=== PATIENT | female | born 1965 | race Caucasian/White ===

== ENCOUNTER 2018-01-07 09:24 | Emergency (ER) | payer MEDICAID, MEDICARE ==
[~2018-01-07] VITALS: Ht 162.6 cm; Wt 61.4 kg
[~2018-01-07 09:24] MED LIST: CITA40TA14 PO; QUET300T2 PO
[2018-01-07] MEDS ORDERED: GABA-531 PO (09:38)
[2018-01-07 12:19] VITALS: BP 141/78
== END 2018-01-07 13:13 | disposition home or self-care (01) ==
LOC: EMS 09:26
DX: F31.9 Bipolar disorder, unspecified (principal); F41.9 Anxiety disorder, unspecified; F17.210 Nicotine dependence, cigarettes, uncomplicated; F15.90 Other stimulant use, unspecified, uncomplicated; Z76.0 Encounter for issue of repeat prescription; Z88.6 Allergy status to analgesic agent; Z88.5 Allergy status to narcotic agent; Z88.8 Allergy status to other drugs, medicaments and biological substances
CPT/HCPCS: 99284; 99406

== ENCOUNTER 2018-02-22 11:41 | Inpatient (IN) | payer MEDICARE, MEDICAID ==
[~2018-02-22] VITALS: Ht 162.6 cm; Wt 68.7 kg
[~2018-02-22 11:41] MED LIST changes: -CITA40TA14 PO; +FERR-89 PO; +GABA-531 PO; +LAMO100 PO; +PANT40TA25 PO; +QUET200T PO; -QUET300T2 PO; +SIMV-259 PO; +VILA10TA PO
[2018-02-22] MEDS ORDERED: ZOLPIDEM TARTRATE 10 MG TABLET PO PRN (12:00)
[2018-02-22 12:09] VITALS: BP 135/92
[2018-02-22] MEDS: IBUPROFEN 600 MG TABLET PO SCH ×2 (14:24→16:34)
[2018-02-22] MEDS: LORazepam 1 MG TABLET PO PRN (14:24)
[2018-02-22] MEDS: QUEtiapine FUMARATE 25 MG TABLET PO SCH ×2 (14:24→16:34)
[2018-02-22 16:08] VITALS: BP 138/75
[2018-02-22] MEDS: QUEtiapine FUMARATE 200 MG TABLET PO SCH (20:41)
[2018-02-22] MEDS: SIMVASTATIN 10 MG TABLET PO SCH (20:41)
[2018-02-23] MEDS: LORazepam 1 MG TABLET PO PRN ×3 (00:11→12:47)
[2018-02-23 01:17] VITALS: BP 126/82
[2018-02-23 06:05] VITALS: BP 124/77
[2018-02-23] MEDS ORDERED: DOCUSATE SODIUM 100 MG CAPSULE PO PRN (07:00)
[2018-02-23] MEDS ORDERED: ONDANSETRON HCL 4 MG TABLET PO PRN (07:00)
[2018-02-23] MEDS ORDERED: MAG HYDROX/AL HYDROX/SIMETH ES 30 ML SUSPENSION UDCUP PO PRN (07:00)
[2018-02-23] MEDS ORDERED: IBUPROFEN 400 MG TABLET PO PRN (07:00)
[2018-02-23] MEDS ORDERED: LOPERAMIDE HCL 2 MG CAPSULE PO PRN (07:00)
[2018-02-23] MEDS ORDERED: ALBUTEROL SULFATE HFA 90 MCG/PUFF 8 GM INHALER IH PRN (07:00)
[2018-02-23] MEDS ORDERED: MAGNESIUM HYDROXIDE SUSPENSION 30 ML UDCUP PO PRN (07:00)
[2018-02-23] MEDS ORDERED: NICOTINE 14 MG/24 HOUR PATCH TD PRN (07:00)
[2018-02-23] MEDS ORDERED: CloNIDine HCL 0.1 MG TABLET PO PRN (07:00)
[2018-02-23] MEDS ORDERED: PETROLATUM,WHITE 71 GM JELLY TP PRN (07:00)
[2018-02-23] MEDS ORDERED: GuaiFENesin/D-METHORPHAN [SUGAR-FREE] 200-20MG/10 ML SYRUP UDCUP PO PRN (07:00)
[2018-02-23 08:27] VITALS: BP 115/76
[2018-02-23 08:52] LABS: BASOPHILS % (AUTO) 0.7 % (0.0-2.0); EOSINOPHILS % (AUTO) 4.3 % (1.0-6.0); HEMATOCRIT 36.7 % (36-46); HEMOGLOBIN 12.5 g/dL (12.0-16.0); LYMPHOCYTES # (AUTO) 2.3 K/uL (1.0-4.8); LYMPHOCYTES % (AUTO) 42.2 % (22.0-44.0); MEAN CORPUSCULAR VOLUME 91 fL (80-100); MONOCYTES # (AUTO) 0.4 K/uL (0.1-1.0); MONOCYTES % (AUTO) 7.7 % (2.0-9.0); NEUTROPHILS # (AUTO) 2.5 K/uL (1.8-7.7); NEUTROPHILS % (AUTO) 45.1 % (40.0-70.0); PLATELET COUNT (AUTO) 217 K/uL (150-450); RED BLOOD CELL COUNT(AUTO) 4.03 MIL/uL (4.00-5.20); RED CELL DISTRIBUTION WIDTH 13.1 % (11.5-14.5)
[2018-02-23] MEDS: IBUPROFEN 600 MG TABLET PO SCH ×3 (09:12→16:33)
[2018-02-23] MEDS: QUEtiapine FUMARATE 25 MG TABLET PO SCH ×3 (09:13→16:33)
[2018-02-23] MEDS: LORATADINE 10 MG TABLET PO SCH (09:13)
[2018-02-23] MEDS: LamoTRIgine 100 MG TABLET PO SCH (09:13)
[2018-02-23] MEDS: FENOFIBRATE 48 MG TABLET PO SCH (09:13)
[2018-02-23] MEDS: PANTOPRAZOLE SODIUM 40 MG DR TABLET PO SCH (09:13)
[2018-02-23 09:27] LABS: AMPHET/METH SCREEN,URINE NEGATIVE (NEGATIVE); BARBITURATE SCREEN, URINE NEGATIVE (NEGATIVE); BENZODIAZEPINES SCREEN,URINE NEGATIVE (NEGATIVE); CANNABINOID SCREEN,URINE NEGATIVE (NEGATIVE); COCAINE SCREEN,URINE NEGATIVE (NEGATIVE); METHADONE SCREEN, URINE NEGATIVE (NEGATIVE); OPIATE SCREEN,URINE NEGATIVE (NEGATIVE)
[2018-02-23 09:31] LABS: PHENCYCLIDINE SCREEN,URINE NEGATIVE (NEGATIVE)
[2018-02-23 09:33] LABS: ALANINE AMINOTRANSFERASE 24 U/L (12-78); ALBUMIN 3.6 g/dL (3.4-5.0); ALKALINE PHOSPHATASE 66 U/L (46-116); ANION GAP 7 mmol/L (8-16); ASPARTATE AMINOTRANSFERASE 18 U/L (15-37); BILIRUBIN,TOTAL 0.3 mg/dL (0.1-1.0); CALCIUM, TOTAL 9.1 mg/dL (8.8-10.5); CARBON DIOXIDE 28 mmol/L (22-29); CHLORIDE 108 mmol/L (98-107); CHOL/HDL RATIO 4.3 (3.9-5.7); CHOLESTEROL 172 mg/dL (131-200); CREATININE 0.88 mg/dL (0.60-1.30); GLOMERULAR FILTR. RATE CALC > 60 mL/min (>60); GLUCOSE,RANDOM 91 mg/dL (70-110); HCG,QUANTITATIVE 1 mIU/mL (0-6); HDL CHOLESTEROL 40 mg/dL (40-60); LDL CHOL (CALC.) 102 mg/dL (0-130); POTASSIUM 4.2 mmol/L (3.5-5.1); SODIUM SERUM 143 mmol/L (136-145); TOTAL PROTEIN, SERUM 6.5 g/dL (6.4-8.2); TRIGLYCERIDES 152 mg/dL (15-150); UREA NITROGEN, BLOOD 22 mg/dL (7-18)
[2018-02-23 10:05] LABS: APPEARANCE,URINE CLEAR (CLEAR); BILIRUBIN,URINE NEGATIVE (NEGATIVE); GLUCOSE, URINE (UA) NEGATIVE (NEGATIVE); KETONES,URINE NEGATIVE (NEGATIVE); LEUKOCYTE ESTERASE ,URINE NEGATIVE (NEGATIVE); NITRATE,URINE NEGATIVE (NEGATIVE); OCCULT BLOOD,URINE NEGATIVE (NEGATIVE); PROTEIN,URINE NEGATIVE (NEGATIVE); UROBILINOGEN,URINE 0.2 mg/dL (<=1.0)
[2018-02-23] MEDS: BuPROPion HCL XL 150 MG ER TABLET PO SCH (12:52)
[2018-02-23 16:21] VITALS: BP 110/76
[2018-02-23] MEDS: SIMVASTATIN 10 MG TABLET PO SCH (20:38)
[2018-02-23] MEDS: QUEtiapine FUMARATE 200 MG TABLET PO SCH (20:38)
[2018-02-24 02:35] VITALS: BP 111/65
[2018-02-24] MEDS: LORazepam 1 MG TABLET PO PRN ×3 (02:37→15:51)
[2018-02-24 07:48] LABS: BASOPHILS % (AUTO) 1.1 % (0.0-2.0); HEMATOCRIT 33.6 % (36-46); HEMOGLOBIN 11.7 g/dL (12.0-16.0); LYMPHOCYTES # (AUTO) 2.4 K/uL (1.0-4.8); LYMPHOCYTES % (AUTO) 47.5 % (22.0-44.0); MEAN CORPUSCULAR HEMOGLOBIN 31.5 pg (26.0-34.0); MEAN CORPUSCULAR HGB CONC 34.9 G/dL (31.0-37.0); MEAN CORPUSCULAR VOLUME 90 fL (80-100); MONOCYTES # (AUTO) 0.4 K/uL (0.1-1.0); MONOCYTES % (AUTO) 8.1 % (2.0-9.0); NEUTROPHILS # (AUTO) 1.9 K/uL (1.8-7.7); NEUTROPHILS % (AUTO) 38.3 % (40.0-70.0); PLATELET COUNT (AUTO) 183 K/uL (150-450); RED BLOOD CELL COUNT(AUTO) 3.72 MIL/uL (4.00-5.20); RED CELL DISTRIBUTION WIDTH 12.9 % (11.5-14.5)
[2018-02-24 08:14] LABS: HEMOGLOBIN A1C 5.3 % (4.5-6.2)
[2018-02-24 08:27] VITALS: BP 115/69
[2018-02-24] MEDS: LamoTRIgine 100 MG TABLET PO SCH (08:44)
[2018-02-24] MEDS: LORATADINE 10 MG TABLET PO SCH (08:44)
[2018-02-24] MEDS: OMEGA-3/DHA/EPA/FISH OIL 1,000 MG CAPSULE PO SCH (08:44)
[2018-02-24] MEDS: MULTIVITAMINS WITH MINERALS, THERAPEUTIC TABLET PO SCH (08:44)
[2018-02-24] MEDS: QUEtiapine FUMARATE 25 MG TABLET PO SCH ×3 (08:44→16:57)
[2018-02-24] MEDS: PANTOPRAZOLE SODIUM 40 MG DR TABLET PO SCH (08:45)
[2018-02-24] MEDS: FENOFIBRATE 48 MG TABLET PO SCH (08:45)
[2018-02-24] MEDS: BuPROPion HCL XL 150 MG ER TABLET PO SCH (08:45)
[2018-02-24] MEDS: IBUPROFEN 600 MG TABLET PO SCH ×3 (08:45→16:57)
[2018-02-24 08:49] LABS: ALANINE AMINOTRANSFERASE 17 U/L (12-78); ALBUMIN 3.3 g/dL (3.4-5.0); ALKALINE PHOSPHATASE 57 U/L (46-116); ANION GAP 7 mmol/L (8-16); ASPARTATE AMINOTRANSFERASE 12 U/L (15-37); BILIRUBIN,TOTAL 0.4 mg/dL (0.1-1.0); CALCIUM, TOTAL 8.9 mg/dL (8.8-10.5); CARBON DIOXIDE 25 mmol/L (22-29); CHLORIDE 108 mmol/L (98-107); CHOL/HDL RATIO 4.1 (3.9-5.7); CHOLESTEROL 147 mg/dL (131-200); CREATININE 0.78 mg/dL (0.60-1.30); GLOMERULAR FILTR. RATE CALC > 60 mL/min (>60); GLUCOSE,RANDOM 82 mg/dL (70-110); HDL CHOLESTEROL 36 mg/dL (40-60); LDL CHOL (CALC.) 86 mg/dL (0-130); POTASSIUM 4.5 mmol/L (3.5-5.1); SODIUM SERUM 140 mmol/L (136-145); THYROID STIMULATING HORMONE 0.76 uIU/mL (0.36-3.74); TOTAL PROTEIN, SERUM 6.1 g/dL (6.4-8.2); TRIGLYCERIDES 127 mg/dL (15-150); UREA NITROGEN, BLOOD 20 mg/dL (7-18)
[2018-02-24 16:08] VITALS: BP 110/65
[2018-02-24] MEDS: QUEtiapine FUMARATE 200 MG TABLET PO SCH (20:09)
[2018-02-24] MEDS: SIMVASTATIN 10 MG TABLET PO SCH (20:09)
[2018-02-25 04:04] VITALS: BP 112/77
[2018-02-25] MEDS: LORazepam 1 MG TABLET PO PRN (04:13)
[2018-02-25 08:26] VITALS: BP 109/68
[2018-02-25] MEDS: OMEGA-3/DHA/EPA/FISH OIL 1,000 MG CAPSULE PO SCH (08:28)
[2018-02-25] MEDS: PANTOPRAZOLE SODIUM 40 MG DR TABLET PO SCH (08:28)
[2018-02-25] MEDS: LamoTRIgine 100 MG TABLET PO SCH (08:28)
[2018-02-25] MEDS: BuPROPion HCL XL 150 MG ER TABLET PO SCH (08:28)
[2018-02-25] MEDS: MULTIVITAMINS WITH MINERALS, THERAPEUTIC TABLET PO SCH (08:28)
[2018-02-25] MEDS: FENOFIBRATE 48 MG TABLET PO SCH (08:29)
[2018-02-25] MEDS: IBUPROFEN 600 MG TABLET PO SCH ×2 (08:29→12:47)
[2018-02-25] MEDS: QUEtiapine FUMARATE 25 MG TABLET PO SCH ×2 (08:30→12:47)
[2018-02-25] MEDS: LORATADINE 10 MG TABLET PO SCH (08:30)
[2018-02-25] MEDS ORDERED: OMEG-135 PO (12:36)
[2018-02-25] MEDS ORDERED: BUPR-93 PO (12:36)
[2018-02-25] MEDS ORDERED: IBUP-2070 PO (12:36)
[2018-02-25] MEDS ORDERED: QUET200T PO (12:36)
[2018-02-25] MEDS ORDERED: FENO48TA15 PO (12:36)
[2018-02-25] MEDS ORDERED: QUET25TA PO (12:36)
[2018-02-25] MEDS ORDERED: LORA10TA7 PO (12:36)
[2018-02-25] MEDS ORDERED: LAMO100 PO (12:36)
== END 2018-02-25 13:30 | disposition home or self-care (01) | DRG 885 ==
LOC: B2X 12:14
PROVIDERS: ADMIT Psychiatry & Neurology Psychiatry; ATTEND Psychiatry & Neurology Psychiatry
DX: F31.5 Bipolar disorder, current episode depressed, severe, with psychotic features (principal); R45.851 Suicidal ideations; F15.20 Other stimulant dependence, uncomplicated; D64.9 Anemia, unspecified; F17.200 Nicotine dependence, unspecified, uncomplicated; E78.5 Hyperlipidemia, unspecified; K59.00 Constipation, unspecified; K21.9 Gastro-esophageal reflux disease without esophagitis; F12.20 Cannabis dependence, uncomplicated; F41.9 Anxiety disorder, unspecified; Z90.89 Acquired absence of other organs; Z71.6 Tobacco abuse counseling; Z91.19 Patient's noncompliance with other medical treatment and regimen; Z79.899 Other long term (current) drug therapy; Z88.8 Allergy status to other drugs, medicaments and biological substances; Z56.0 Unemployment, unspecified; Z91.048 Other nonmedicinal substance allergy status
CPT/HCPCS: 80307; 83036; 84443

== ENCOUNTER → 2018-05-30 | Outpatient (CLI) | payer MEDICARE, MEDICAID ==
[~2018-05-30] MED LIST changes: +BUPR-93 PO; +CEPH500 PO; +FENO145T PO; +FENO48TA15 PO; -FERR-89 PO; -GABA-531 PO; +IBUP-2070 PO; +LITH600C PO; +LORA10TA7 PO; +OMEG-135 PO; +QUET25TA PO; -VILA10TA PO
== END | disposition home or self-care (01) ==
LOC: LABMN 11:30
PROVIDERS: ATTEND Psychiatry & Neurology Psychiatry
DX: F25.0 Schizoaffective disorder, bipolar type (principal); I10 Essential (primary) hypertension
CPT/HCPCS: 80074; 86706; 86708

== ENCOUNTER → 2018-06-22 | Outpatient (CLI) | payer MEDICARE, MEDICAID ==
[~2018-06-22] MED LIST changes: -FENO48TA15 PO; -IBUP-2070 PO; -LAMO100 PO; -LORA10TA7 PO; -QUET25TA PO
== END | disposition home or self-care (01) ==
LOC: LABMN 11:00
PROVIDERS: ATTEND Psychiatry & Neurology Psychiatry
DX: F25.0 Schizoaffective disorder, bipolar type (principal)

== ENCOUNTER → 2018-08-10 | Outpatient (CLI) | payer MEDICARE, MEDICAID ==
[2018-08-11 09:55] LABS: CHOL/HDL RATIO 2.9 (3.9-5.7)
== END | disposition home or self-care (01) ==
LOC: LABMN 12:00
PROVIDERS: ATTEND Psychiatry & Neurology Psychiatry
DX: F25.0 Schizoaffective disorder, bipolar type (principal); K21.9 Gastro-esophageal reflux disease without esophagitis; Z79.899 Other long term (current) drug therapy; Z88.8 Allergy status to other drugs, medicaments and biological substances
CPT/HCPCS: 82947; 83036

== ENCOUNTER 2019-10-18 22:35 | Emergency (ER) | payer MEDICARE, MEDICAID ==
[~2019-10-18] VITALS: Ht 162.6 cm; Wt 68.2 kg
[2019-10-18 22:56] VITALS: BP 120/71
[2019-10-18] MEDS ORDERED: LAMO25TA15 PO (23:01)
[2019-10-18] MEDS ORDERED: HYD25 PO (23:01)
[2019-10-18] MEDS ORDERED: TRAZ-252 PO (23:01)
[2019-10-18 23:14] LABS: APPEARANCE,URINE CLEAR (CLEAR); BILIRUBIN,URINE NEGATIVE (NEGATIVE); GLUCOSE, URINE (UA) NEGATIVE (NEGATIVE); KETONES,URINE NEGATIVE (NEGATIVE); LEUKOCYTE ESTERASE ,URINE TRACE (NEGATIVE); NITRATE,URINE NEGATIVE (NEGATIVE); OCCULT BLOOD,URINE NEGATIVE (NEGATIVE); PROTEIN,URINE NEGATIVE (NEGATIVE); UROBILINOGEN,URINE 0.2 mg/dL (<=1.0)
[2019-10-18 23:19] LABS: AMPHET/METH SCREEN,URINE NEGATIVE (NEGATIVE); BARBITURATE SCREEN, URINE NEGATIVE (NEGATIVE); BENZODIAZEPINES SCREEN,URINE NEGATIVE (NEGATIVE); CANNABINOID SCREEN,URINE NEGATIVE (NEGATIVE); COCAINE SCREEN,URINE NEGATIVE (NEGATIVE); METHADONE SCREEN, URINE NEGATIVE (NEGATIVE); OPIATE SCREEN,URINE NEGATIVE (NEGATIVE)
[2019-10-18 23:20] LABS: PHENCYCLIDINE SCREEN,URINE NEGATIVE (NEGATIVE)
[2019-10-18 23:25] LABS: BACTERIA,URINE None Seen /HPF (None Seen); RBC,URINE None Seen /HPF (0-2); SQUAMOUS EPITHELIAL CELL,UR Rare /LPF (None Seen); WBC,URINE 0-2 /HPF (0-5)
[2019-10-18 23:40] LABS: BASOPHILS % (AUTO) 1.2 % (0.0-2.0); EOSINOPHILS % (AUTO) 3.8 % (1.0-6.0); HEMATOCRIT 34.7 % (36-46); HEMOGLOBIN 11.7 g/dL (12.0-16.0); LYMPHOCYTES # (AUTO) 3.9 K/uL (1.0-4.8); LYMPHOCYTES % (AUTO) 51.4 % (22.0-44.0); MEAN CORPUSCULAR HEMOGLOBIN 31.9 pg (26.0-34.0); MEAN CORPUSCULAR HGB CONC 33.7 G/dL (31.0-37.0); MEAN CORPUSCULAR VOLUME 95 fL (80-100); MONOCYTES # (AUTO) 0.7 K/uL (0.1-1.0); MONOCYTES % (AUTO) 8.7 % (2.0-9.0); NEUTROPHILS # (AUTO) 2.7 K/uL (1.8-7.7); NEUTROPHILS % (AUTO) 34.9 % (40.0-70.0); PLATELET COUNT (AUTO) 202 K/uL (150-450); RED BLOOD CELL COUNT(AUTO) 3.68 MIL/uL (4.00-5.20); RED CELL DISTRIBUTION WIDTH 13.3 % (11.5-14.5)
[2019-10-18 23:49] LABS: ANION GAP 8 mmol/L (8-16); CALCIUM, TOTAL 9.4 mg/dL (8.8-10.5); CARBON DIOXIDE 27 mmol/L (22-29); CHLORIDE 106 mmol/L (98-107); CREATININE 1.01 mg/dL (0.60-1.30); GLOMERULAR FILTR. RATE CALC 57 mL/min (>60); GLUCOSE,RANDOM 100 mg/dL (70-110); POTASSIUM 3.8 mmol/L (3.5-5.1); SODIUM SERUM 141 mmol/L (136-145); UREA NITROGEN, BLOOD 17 mg/dL (7-18)
[2019-10-19 00:01] LABS: ALANINE AMINOTRANSFERASE 95 U/L (12-78); ALKALINE PHOSPHATASE 58 U/L (46-116); ASPARTATE AMINOTRANSFERASE 48 U/L (15-37); BILIRUBIN,TOTAL 0.3 mg/dL (0.1-1.0); HCG,QUANTITATIVE 1 mIU/mL (0-6); LIPASE 107 U/L (73-393); TOTAL PROTEIN, SERUM 6.8 g/dL (6.4-8.2)
== END 2019-10-19 01:07 | disposition home or self-care (01) ==
LOC: EMS 22:39
DX: R10.30 Lower abdominal pain, unspecified (principal); R33.9 Retention of urine, unspecified; R35.0 Frequency of micturition; F31.9 Bipolar disorder, unspecified; F17.210 Nicotine dependence, cigarettes, uncomplicated; F15.90 Other stimulant use, unspecified, uncomplicated; Z90.710 Acquired absence of both cervix and uterus; Z88.5 Allergy status to narcotic agent; Z88.8 Allergy status to other drugs, medicaments and biological substances
CPT/HCPCS: 36415; 51702; 80053; 80307; 81001; 83690; 84702; 85025; 99284; G0480

== ENCOUNTER 2019-12-02 14:14 | Inpatient (IN) | payer MEDICARE, MEDICAID ==
[~2019-12-02] VITALS: Ht 162.6 cm; Wt 60.2 kg
[~2019-12-02 14:14] MED LIST changes: -CEPH500 PO; +HYD25 PO; +LAMO25TA15 PO; -LITH600C PO; +PANT-31 PO; -PANT40TA25 PO; -QUET200T PO; -SIMV-259 PO; +TRAZ-252 PO
[2019-12-02 15:14] VITALS: BP 122/74
[2019-12-02] MEDS ORDERED: HALOPERIDOL 5 MG TABLET PO PRN (15:45)
[2019-12-02] MEDS ORDERED: LOPERAMIDE HCL 2 MG CAPSULE PO PRN (17:00)
[2019-12-02] MEDS ORDERED: ALBUTEROL SULFATE HFA 90 MCG/PUFF 8 GM INHALER IH PRN (17:00)
[2019-12-02] MEDS ORDERED: ONDANSETRON HCL 4 MG TABLET PO PRN (17:00)
[2019-12-02] MEDS ORDERED: GuaiFENesin/D-METHORPHAN [SUGAR-FREE] 200-20MG/10 ML SYRUP UDCUP PO PRN (17:00)
[2019-12-02] MEDS ORDERED: DOCUSATE SODIUM 100 MG CAPSULE PO PRN (17:00)
[2019-12-02] MEDS ORDERED: CloNIDine HCL 0.1 MG TABLET PO PRN (17:00)
[2019-12-02] MEDS ORDERED: IBUPROFEN 400 MG TABLET PO PRN (17:00)
[2019-12-02] MEDS ORDERED: MAGNESIUM HYDROXIDE SUSPENSION 30 ML UDCUP PO PRN (17:00)
[2019-12-02] MEDS ORDERED: ACETAMINOPHEN 325 MG TABLET PO PRN (17:00)
[2019-12-02] MEDS ORDERED: MAG HYDROX/AL HYDROX/SIMETH ES 30 ML SUSPENSION UDCUP PO PRN (17:00)
[2019-12-02] MEDS ORDERED: NICOTINE 14 MG/24 HOUR PATCH TD PRN (17:00)
[2019-12-02] MEDS: LORazepam 2 MG TABLET PO PRN (17:08)
[2019-12-02 17:21] VITALS: BP 108/71
[2019-12-02 17:42] VITALS: BP 108/71
[2019-12-02] MEDS: PETROLATUM,WHITE 28 GM JELLY TP PRN (19:42)
[2019-12-02] MEDS: ZOLPIDEM TARTRATE 10 MG TABLET PO PRN (20:31)
[2019-12-03] MEDS: LORazepam 2 MG TABLET PO PRN ×3 (01:07→14:00)
[2019-12-03 01:10] VITALS: BP 126/70
[2019-12-03 08:16] VITALS: BP 100/70
[2019-12-03] MEDS: PANTOPRAZOLE SODIUM 40 MG DR TABLET PO SCH (08:34)
[2019-12-03] MEDS: FENOFIBRATE 48 MG TABLET PO SCH (08:34)
[2019-12-03 08:35] LABS: BASOPHILS % (AUTO) 0.8 % (0.0-2.0); EOSINOPHILS % (AUTO) 3.6 % (1.0-6.0); LYMPHOCYTES % (AUTO) 47.4 % (22.0-44.0); MEAN CORPUSCULAR HEMOGLOBIN 32.2 pg (26.0-34.0); MEAN CORPUSCULAR HGB CONC 34.4 G/dL (31.0-37.0); MEAN CORPUSCULAR VOLUME 94 fL (80-100); MONOCYTES # (AUTO) 0.6 K/uL (0.1-1.0); MONOCYTES % (AUTO) 9.2 % (2.0-9.0); NEUTROPHILS # (AUTO) 2.4 K/uL (1.8-7.7); PLATELET COUNT (AUTO) 240 K/uL (150-450); RED BLOOD CELL COUNT(AUTO) 3.73 MIL/uL (4.00-5.20); RED CELL DISTRIBUTION WIDTH 12.8 % (11.5-14.5)
[2019-12-03 08:50] LABS: ALANINE AMINOTRANSFERASE 31 U/L (12-78); ALBUMIN 3.6 g/dL (3.4-5.0); ALKALINE PHOSPHATASE 51 U/L (46-116); ANION GAP 11 mmol/L (8-16); ASPARTATE AMINOTRANSFERASE 18 U/L (15-37); BILIRUBIN,TOTAL 0.3 mg/dL (0.1-1.0); CALCIUM, TOTAL 9.4 mg/dL (8.8-10.5); CARBON DIOXIDE 25 mmol/L (22-29); CHLORIDE 107 mmol/L (98-107); CHOLESTEROL 122 mg/dL (131-200); CREATININE 0.86 mg/dL (0.60-1.30); FREE T4 (FREE THYROXINE) 1.04 ng/dL (0.76-1.46); GLOMERULAR FILTR. RATE CALC > 60 mL/min (>60); GLUCOSE,RANDOM 93 mg/dL (70-110); HDL CHOLESTEROL 41 mg/dL (40-60); LDL CHOL (CALC.) 66 mg/dL (0-130); POTASSIUM 3.8 mmol/L (3.5-5.1); SODIUM SERUM 143 mmol/L (136-145); THYROID STIMULATING HORMONE 1.64 uIU/mL (0.36-3.74); TOTAL PROTEIN, SERUM 6.6 g/dL (6.4-8.2); TRIGLYCERIDES 74 mg/dL (15-150); UREA NITROGEN, BLOOD 22 mg/dL (7-18)
[2019-12-03] MEDS: LamoTRIgine 25 MG TABLET PO SCH ×2 (10:00→16:31)
[2019-12-03] MEDS: TraZODone HCL 50 MG TABLET PO SCH ×2 (10:19→16:31)
[2019-12-03] MEDS: BuPROPion HCL 100 MG SR TABLET PO SCH (10:19)
[2019-12-03 16:37] VITALS: BP 133/82
[2019-12-03] MEDS: RisperiDONE 1 MG TABLET PO SCH (20:26)
[2019-12-03] MEDS: ZOLPIDEM TARTRATE 10 MG TABLET PO PRN (20:50)
[2019-12-04 03:26] VITALS: BP 110/71
[2019-12-04] MEDS: LORazepam 2 MG TABLET PO PRN ×3 (03:45→17:10)
[2019-12-04] MEDS: PETROLATUM,WHITE 28 GM JELLY TP PRN (05:40)
[2019-12-04 08:10] VITALS: BP 110/71
[2019-12-04] MEDS: PANTOPRAZOLE SODIUM 40 MG DR TABLET PO SCH (08:19)
[2019-12-04] MEDS: RisperiDONE 1 MG TABLET PO SCH ×2 (08:20→20:38)
[2019-12-04] MEDS: TraZODone HCL 50 MG TABLET PO SCH ×2 (08:20→16:30)
[2019-12-04] MEDS: FENOFIBRATE 48 MG TABLET PO SCH (08:21)
[2019-12-04] MEDS: BuPROPion HCL 100 MG SR TABLET PO SCH (08:28)
[2019-12-04 16:19] VITALS: BP 127/67
[2019-12-04] MEDS ORDERED: LURASIDONE HCL 20 MG TABLET PO SCH (17:00)
[2019-12-04] MEDS: ZOLPIDEM TARTRATE 10 MG TABLET PO PRN (21:10)
[2019-12-05 04:08] VITALS: BP 117/76
[2019-12-05 06:13] VITALS: BP 145/74
[2019-12-05 08:00] VITALS: BP 139/96
[2019-12-05] MEDS: BuPROPion HCL 100 MG SR TABLET PO SCH (08:53)
[2019-12-05] MEDS: TraZODone HCL 50 MG TABLET PO SCH (08:54)
[2019-12-05] MEDS: RisperiDONE 1 MG TABLET PO SCH (08:54)
[2019-12-05] MEDS: FENOFIBRATE 48 MG TABLET PO SCH (08:54)
[2019-12-05] MEDS: LORazepam 2 MG TABLET PO PRN (08:55)
[2019-12-05] MEDS: PANTOPRAZOLE SODIUM 40 MG DR TABLET PO SCH (08:55)
[2019-12-05] MEDS ORDERED: BUPR100 PO (11:32)
[2019-12-05] MEDS ORDERED: LURA20TA PO (11:33)
[2019-12-05] MEDS ORDERED: TRAZ-252 PO ×2 (11:33→12:16)
[2019-12-05] MEDS ORDERED: RISP1 PO (11:34)
[2019-12-05] MEDS ORDERED: FENO48TA20 PO (11:34)
== END 2019-12-05 12:35 | disposition home or self-care (01) | DRG 885 ==
LOC: B2X 15:51
PROVIDERS: ADMIT Psychiatry & Neurology Child & Adolescent Psychiatry; ATTEND Psychiatry & Neurology Child & Adolescent Psychiatry
DX: F31.2 Bipolar disorder, current episode manic severe with psychotic features (principal); R45.851 Suicidal ideations; K21.9 Gastro-esophageal reflux disease without esophagitis; Z98.1 Arthrodesis status; E89.0 Postprocedural hypothyroidism; E78.5 Hyperlipidemia, unspecified; F41.9 Anxiety disorder, unspecified; F19.10 Other psychoactive substance abuse, uncomplicated
CPT/HCPCS: 83036; 84439; 84443